=== PATIENT | female | born 1970 | race Caucasian/White ===

== ENCOUNTER 2017-05-28 16:39 | Emergency (ER) | payer SELFPAY ==
[2017-05-28 16:51] VITALS: BP 135/88
== END 2017-05-28 17:00 | disposition left against medical advice (07) ==
LOC: ED 16:39
DX: M79.643 Pain in unspecified hand (principal); Z53.20 Procedure and treatment not carried out because of patient's decision for unspecified reasons
CPT/HCPCS: 99281